=== PATIENT | female | born 1960 | race Caucasian/White ===

== ENCOUNTER → 2018-05-14 | Outpatient (CLI) | payer OTHER ==
[~2018-05-14] MED LIST: ALBU90OI61 INH; CYCL10 PO; Estradiol1 MG PO; GABA300 PO; Hydrochloroth12.5 MG PO; IBUP800 PO; Omeprazole20 M1 PO; PROZAC20 MG PO; RXCLIN PO; Ranitidine HCl300 M1 PO; TRAM50 PO
== END | disposition home or self-care (01) ==
LOC: LAB SHORT 17:57 → LAB 17:57
PROVIDERS: Obstetrics & Gynecology Gynecology
DX: Z12.72 Encounter for screening for malignant neoplasm of vagina (principal)
CPT/HCPCS: 87624; G0123

== ENCOUNTER → 2019-06-15 | Outpatient (CLI) | payer OTHER ==
[2019-06-17 14:07] LABS: HPV 16 Negative (Negative); HPV 18 Negative (Negative); HPV OTHER HR TYPES Negative (Negative)
== END | disposition home or self-care (01) ==
LOC: LAB 18:06 → LAB SHORT 18:06
PROVIDERS: Nurse Practitioner Women's Health
DX: Z01.419 Encounter for gynecological examination (general) (routine) without abnormal findings (principal); Z12.72 Encounter for screening for malignant neoplasm of vagina; N89.3 Dysplasia of vagina, unspecified; Z91.89 Other specified personal risk factors, not elsewhere classified
CPT/HCPCS: 87624; G0123

== ENCOUNTER 2020-06-28 01:50 | Day surgery (SDC) | payer OTHER | END 2020-06-28 22:40 | disposition home or self-care (01) | LOC: WOUND 01:50 | DX: L97.512 Non-pressure chronic ulcer of other part of right foot with fat layer exposed (principal); T81.40XD Infection following a procedure, unspecified, subsequent encounter; I73.9 Peripheral vascular disease, unspecified; J45.909 Unspecified asthma, uncomplicated; F32.9 Major depressive disorder, single episode, unspecified; Z79.899 Other long term (current) drug therapy ==

== ENCOUNTER 2020-07-05 00:37 | Day surgery (SDC) | payer OTHER | END 2020-07-05 22:39 | disposition home or self-care (01) | LOC: WOUND 00:37 | DX: L97.512 Non-pressure chronic ulcer of other part of right foot with fat layer exposed (principal); T81.40XD Infection following a procedure, unspecified, subsequent encounter; I73.9 Peripheral vascular disease, unspecified | CPT/HCPCS: G0463 ==

== ENCOUNTER 2020-07-12 00:19 | Day surgery (SDC) | payer OTHER | END 2020-07-12 22:46 | disposition home or self-care (01) | LOC: WOUND 00:19 | DX: L97.512 Non-pressure chronic ulcer of other part of right foot with fat layer exposed (principal); T81.40XD Infection following a procedure, unspecified, subsequent encounter; I73.9 Peripheral vascular disease, unspecified; J45.909 Unspecified asthma, uncomplicated; F32.9 Major depressive disorder, single episode, unspecified; Z79.899 Other long term (current) drug therapy | CPT/HCPCS: G0463 ==

== ENCOUNTER 2020-07-19 00:43 | Day surgery (SDC) | payer OTHER | END 2020-07-19 22:46 | disposition home or self-care (01) | LOC: WOUND 00:43 | DX: L97.512 Non-pressure chronic ulcer of other part of right foot with fat layer exposed (principal); T81.40XD Infection following a procedure, unspecified, subsequent encounter; I73.9 Peripheral vascular disease, unspecified; Z79.899 Other long term (current) drug therapy | CPT/HCPCS: G0463 ==

== ENCOUNTER 2020-07-26 00:11 | Day surgery (SDC) | payer OTHER | END 2020-07-26 22:41 | disposition home or self-care (01) | LOC: WOUND 00:11 | DX: L97.512 Non-pressure chronic ulcer of other part of right foot with fat layer exposed (principal); T81.40XD Infection following a procedure, unspecified, subsequent encounter; I73.9 Peripheral vascular disease, unspecified | CPT/HCPCS: G0463 ==

== ENCOUNTER 2020-08-02 05:24 | Day surgery (SDC) | payer OTHER | END 2020-08-02 23:04 | disposition home or self-care (01) | LOC: WOUND 05:24 | DX: T81.49XA Infection following a procedure, other surgical site, initial encounter (principal); L08.9 Local infection of the skin and subcutaneous tissue, unspecified; B99.9 Unspecified infectious disease; I96 Gangrene, not elsewhere classified; J45.909 Unspecified asthma, uncomplicated; D64.9 Anemia, unspecified; G47.30 Sleep apnea, unspecified; F32.9 Major depressive disorder, single episode, unspecified; G25.81 Restless legs syndrome; I47.1 Supraventricular tachycardia; K21.9 Gastro-esophageal reflux disease without esophagitis; M79.7 Fibromyalgia; M19.90 Unspecified osteoarthritis, unspecified site; Z79.899 Other long term (current) drug therapy; Z88.8 Allergy status to other drugs, medicaments and biological substances; Z91.048 Other nonmedicinal substance allergy status; Z86.718 Personal history of other venous thrombosis and embolism; Z87.891 Personal history of nicotine dependence; Y83.8 Other surgical procedures as the cause of abnormal reaction of the patient, or of later complication, without mention of misadventure at the time of the procedure | CPT/HCPCS: G0463 ==

== ENCOUNTER 2020-08-09 01:05 | Day surgery (SDC) | payer OTHER | END 2020-08-09 23:26 | disposition home or self-care (01) | LOC: WOUND 01:05 | DX: L97.512 Non-pressure chronic ulcer of other part of right foot with fat layer exposed (principal); T81.40XD Infection following a procedure, unspecified, subsequent encounter; I73.9 Peripheral vascular disease, unspecified | CPT/HCPCS: G0463 ==

== ENCOUNTER 2020-08-16 00:44 | Day surgery (SDC) | payer OTHER | END 2020-08-16 22:51 | disposition home or self-care (01) | LOC: WOUND 00:44 | DX: T81.49XD Infection following a procedure, other surgical site, subsequent encounter (principal); B99.9 Unspecified infectious disease; I73.9 Peripheral vascular disease, unspecified; D64.9 Anemia, unspecified; F32.9 Major depressive disorder, single episode, unspecified; G25.3 Myoclonus; G25.81 Restless legs syndrome; I47.1 Supraventricular tachycardia; J45.909 Unspecified asthma, uncomplicated; M19.90 Unspecified osteoarthritis, unspecified site; M79.7 Fibromyalgia; G47.00 Insomnia, unspecified; Z79.899 Other long term (current) drug therapy; Z86.718 Personal history of other venous thrombosis and embolism; Y83.9 Surgical procedure, unspecified as the cause of abnormal reaction of the patient, or of later complication, without mention of misadventure at the time of the procedure | CPT/HCPCS: G0463 ==

== ENCOUNTER → 2021-06-13 | Outpatient (CLI) | payer OTHER | END | disposition home or self-care (01) | LOC: LAB 08:46 → LAB SHORT 08:46 | DX: C44.511 Basal cell carcinoma of skin of breast (principal) | CPT/HCPCS: 88305 ==

== ENCOUNTER 2024-04-06 12:32 | Emergency (ER) | payer OTHER ==
[~2024-04-06] VITALS: Ht 170.2 cm; Wt 103.9 kg
[2024-04-06 13:05] VITALS: BP 162/86
[2024-04-06] MEDS ORDERED: Ketorolac Tromethamine 30mg Vial IM ONE (13:10)
[2024-04-06] MEDS ORDERED: Methocarbamol 500 MG Tab PO ONE (13:40)
[2024-04-06] MEDS ORDERED: Acetaminophen 500 MG Tab PO ONE (13:45)
[2024-04-06] MEDS ORDERED: Lidocaine 4% 1 Patch TOP ONE (13:45)
[2024-04-06] MEDS ORDERED: METPRE4DP PO (15:01)
[2024-04-06] MEDS ORDERED: IBUP400 PO (15:01)
[2024-04-06] MEDS ORDERED: LIDO700A20 TOP (15:01)
[2024-04-06] MEDS ORDERED: Robaxin750 MG PO (15:01)
== END 2024-04-06 15:12 | disposition home or self-care (01) ==
LOC: ER 12:32
DX: M54.42 Lumbago with sciatica, left side (principal); S39.012A Strain of muscle, fascia and tendon of lower back, initial encounter; X58.XXXA Exposure to other specified factors, initial encounter; Z88.8 Allergy status to other drugs, medicaments and biological substances; Z91.048 Other nonmedicinal substance allergy status; Z79.899 Other long term (current) drug therapy; Z87.891 Personal history of nicotine dependence
CPT/HCPCS: 72100; 96372; 99283-25; A9270; J1885